=== PATIENT | female | born 1965 | race Caucasian/White ===

== ENCOUNTER → 2018-03-26 17:11 | Outpatient (REF) | payer OTHER, SELFPAY ==
[2018-03-26 21:10] LABS: Bilirubin Negative (Negative); Blood Moderate (Negative); Clarity Clear; Glucose Negative (Negative); Ketones Negative (Negative); Leukocyte Esterase Negative (Negative); Nitrite Negative (Negative); Specific Gravity 1.015 (1.005-1.025); Urobilinogen 0.2 EU/dL (Up TO 0.2)
[2018-03-26 21:30] LABS: Bacteria Few HPF (Negative); Crystals Negative HPF (Negative); Epithelial Cells Few HPF (Negative); RBC 20-50 (0-2); WBC 0-2 HPF (0-5)
[2018-03-26 21:31] LABS: C & S Indicated? No; Casts Negative LPF (Negative); Mucus Trace (Negative)
[2018-03-26 21:35] LABS: COMMENT (LAB VIEW ONLY) 147.56 mg/dL; Microalb ug/mg Crea 21.6 ug/mg Cr
== END ==
LOC: NCHCN 17:11
PROVIDERS: PCP Nurse Practitioner Family; Visit Provider Surgery
DX: N28.9 Disorder of kidney and ureter, unspecified (principal); R35.0 Frequency of micturition
CPT/HCPCS: 81003; 81015; 82043; 82570

== ENCOUNTER → 2018-04-11 03:00 | Outpatient (CLI) | payer OTHER, SELFPAY ==
--- NOTE | 2018-04-11 08:25 | DI.REPORT_ITS ---
SYMPTOM/DIAGNOSIS: MICROALBUMINURIA R80.9 RENAL ULTRASOUND: The kidneys are normal in size and echogenicity and show normal parenchymal thickness. No hydronephrosis or nephrolithiasis is seen. The pre-void bladder volume measures 278 cc. The post-void bladder volume is 45 cc. The right ureteral jet was visualized. The left ureteral jet was not visualized. No bladder calcification or focal bladder mass is seen. IMPRESSION: Renal ultrasound is within normal limits.
== END ==
PROVIDERS: PCP Nurse Practitioner Family; Visit Provider Nurse Practitioner Family
DX: R80.9 Proteinuria, unspecified (principal)
CPT/HCPCS: 76770

== ENCOUNTER 2018-11-06 00:54 | Outpatient (CLI) | payer OTHER, SELFPAY ==
--- NOTE | 2018-11-06 10:49 | DI.MAMMO_ITS ---
SYMPTOM/DIAGNOSIS: SCREEN, Z12.31 MAMMOGRAM: Mammograms were interpreted according to the usual protocol including computer analysis with CAD system, tomosynthesis and C view imaging. Comparison with prior examinations. Breast density B. No suspicious masses or microcalcifications are seen. There is no definite evidence of malignancy. IMPRESSION: Category 1-B. Negative mammogram. Routine screening is recommended. [facility] ASSESSMENT OF FINDINGS: Negative. Category 1. Patient will receive a letter notifying them of these results. BI-RADS category B. There are scattered areas of fibroglandular density.
== END 2018-11-06 01:14 ==
PROVIDERS: PCP Nurse Practitioner Family; Visit Provider Nurse Practitioner Family
DX: Z12.31 Encounter for screening mammogram for malignant neoplasm of breast (principal)
CPT/HCPCS: 77063; 77067

== ENCOUNTER 2019-04-24 14:53 | Outpatient (REF) | payer OTHER, SELFPAY ==
[2019-04-24 20:49] LABS: Abs Immature Grans 0.02 k/cumm (0.0-0.09); Absolute Basophil Count 0.02 k/cumm (0.0-0.2); Absolute Eosinophil Count 0.14 k/cumm (0.0-0.7); Absolute Monocyte Count 0.59 k/cumm (0.11-0.7); Absolute Neutrophil Count 4.84 k/cumm (1.2-6.7); Basophils % 0.3; HCT 45.1 % (36.0-46.0); HGB 14.3 g/dL (12.0-15.5); Immature Grans % 0.3; Mean Corp. HGB Concentration 31.7 g/dL (32.0-36.0); Mean Corpuscular Hemoglobin 31.4 pg (27.0-33.0); Mean Corpuscular Volume 99.1 fL (80-95); Mean Platelet Volume 11.8 fL (8.0-11.0); Monocytes % 8.4; Platelet Count 297 x1000/uL (130-400); RBC 4.55 m/cumm (4.00-5.20); RBC Distribution Width 13.4 % (11.7-14.6); White Blood Cell Count 7.01 k/cumm (4.4-10.8)
[2019-04-24 21:09] LABS: Anion Gap 10.2 mmol/L (3-11); BUN 11 mg/dL (7-18); CO2 27.8 mmol/L (21.0-32.0); CREATININE 1.16 mg/dL (0.55-1.02); Chloride 107 mmol/L (98-107); Estimated GFR 49.06 (mL/min/1.73m2); Glucose 72 mg/dL (70-100); Potassium 4.6 mmol/L (3.5-5.1); Sodium 145 mmol/L (136-145)
== END 2019-04-24 15:13 ==
LOC: NCHCN 14:53
PROVIDERS: PCP Nurse Practitioner Family; Visit Provider Nurse Practitioner Family
DX: S20.96XD Insect bite (nonvenomous) of unspecified parts of thorax, subsequent encounter (principal); R11.0 Nausea; M79.673 Pain in unspecified foot; R07.89 Other chest pain; R80.9 Proteinuria, unspecified; N18.3 Chronic kidney disease, stage 3 (moderate); D75.89 Other specified diseases of blood and blood-forming organs; Z00.00 Encounter for general adult medical examination without abnormal findings
CPT/HCPCS: 80048; 85025

== ENCOUNTER 2020-11-01 12:51 | Outpatient (REF) | payer OTHER, SELFPAY ==
--- NOTE | 2020-11-01 09:45 | PAPFT_PTH ---
PATIENT: Em Navarro LOC: [facility]#:[id number] AGE/SX: 55/F ROOM: RE11/01/[address]: Jewels Davis : 1965 BED: DIS: 11/01/2020 SPEC #: [id number] RECD: 11/01/20 17:20 STATUS: ANISHA CHAHAL #: [id number] APRIL: 11/01/20 09:[address]: Jewels Davis DEPT: [facility] Cytology RECD BY: Thea Dumont Tissues: 1 - CX/ENDOCX FOR PAP SMEARS Procedures: PAP THIN PREP/UVM Screening HPV DNA PROBE Comments: [id number]
[2020-11-01 13:25] LABS: Abs Immature Grans 0.02 10^3/uL (0.0-0.06); Absolute Basophil Count 0.04 10^3/uL (0.0-0.2); Absolute Lymphocyte Count 1.41 10^3/uL (1.2-3.4); Absolute Monocyte Count 0.57 10^3/uL (0.1-0.8); Absolute Neutrophil Count 6.22 10^3/uL (1.2-6.7); Basophils % 0.5; Eosinophils % 3.5; HCT 40.2 % (36.0-46.0); HGB 13.1 g/dL (11.2-15.7); Immature Grans % 0.2; Lymphocytes % 16.5; MCH 32.8 pg (27.0-33.0); MCHC 32.6 % (32.0-36.0); MCV 100.5 fL (80-95); MPV 11.3 fL (8.0-11.0); Monocytes % 6.7; Neutrophils % 72.6; Nucleated RBC 0 %; Platelet Count 279 10^3/uL (130-400); RDW 12.7 % (11.7-14.6); RDW-SD 47.4 fL; WBC 8.56 10^3/uL (4.4-10.8)
[2020-11-01 13:36] LABS: Iron 70 ug/dL (50-170); Total Iron Binding Capacity 326 ug/dL (250-450); Transferrin Sat 21 % (15-50)
[2020-11-01 13:44] LABS: ALT 17 U/L (14-59); AST 12 U/L (15-37); Albumin 3.5 g/dL (3.4-5.0); Alkaline Phosphatase 86 U/L (46-116); Anion Gap 8.9 mmol/L (3-11); BUN 14 mg/dL (7-18); Bilirubin, Total 0.2 mg/dL (0.2-1.0); CO2 29.1 mmol/L (21.0-32.0); CREATININE 1.2 mg/dL (0.55-1.02); Calculated LDL 105 mg/dL (<100); Chloride 103 mmol/L (98-107); Cholesterol 163 mg/dL (<200); Estimated GFR 46.99 (mL/min/1.73m2); Glucose 85 mg/dL (74-106); HDL Cholesterol 49 mg/dL (40-60); Sodium 141 mmol/L (136-145); TSH (W/Ref FT4) 0.96 uIU/mL (0.36-3.74); Total Protein 6.5 g/dL (6.4-8.2); Triglyceride 48 mg/dL (<150)
[2020-11-01 14:01] LABS: Calcium 8.9 mg/dL (8.5-10.1)
[2020-11-02 11:37] LABS: Hepatitis C Ab w Rflx HCV PCR Negative (Negative)
[2020-11-02 11:55] LABS: HIV-1/2 Ag & Ab Screen Negative (Negative)
== END 2020-11-01 12:52 | disposition home or self-care (01) ==
LOC: NCHCN 12:51
PROVIDERS: PCP Nurse Practitioner Family; Visit Provider Nurse Practitioner Family
DX: Z00.00 Encounter for general adult medical examination without abnormal findings (principal); R51.9 Headache, unspecified; N18.30 Chronic kidney disease, stage 3 unspecified; M25.59 Pain in other specified joint; J45.20 Mild intermittent asthma, uncomplicated; Z11.4 Encounter for screening for human immunodeficiency virus [HIV]; D75.89 Other specified diseases of blood and blood-forming organs; Z11.59 Encounter for screening for other viral diseases; Z13.220 Encounter for screening for lipoid disorders; R49.0 Dysphonia; Z12.4 Encounter for screening for malignant neoplasm of cervix; Z01.419 Encounter for gynecological examination (general) (routine) without abnormal findings; Z11.51 Encounter for screening for human papillomavirus (HPV); R79.89 Other specified abnormal findings of blood chemistry
CPT/HCPCS: 80053; 80061; 86803; 87389; 88142; 83540; 83550; 84443; 85025; 87624

== ENCOUNTER 2020-11-03 01:21 | Outpatient (CLI) | payer OTHER, SELFPAY ==
--- NOTE | 2020-11-03 | DI.MAMMO_ITS ---
EXAM: MG MAMMO SCREENING CLINICAL HISTORY: SCREENING, Z12.31 TECHNIQUE: Bilateral full field digital CC and MLO mammographic images were obtained with 3D tomosyn thesis and utilizing computer aided detection (CAD). COMPARISON: Available for comparison. FINDINGS: Masses/Architectural Distortion: None seen. There is a stable lymph nodes seen in the outer left crist[address] st. Microcalcifications: No suspicious pleomorphic-type are seen. Skin Thickening/Nipple Retraction: None. IMPRESSION: 1. No significant interval change with no specific features of malignancy noted. 2. Unless there is more urgent need, screening mammography is recommended, as per [place] guidelines. BI-RADS Category 1 - Negative Breast Density - Category B - Scattered areas of fibroglandular density Breast density category C or D implies that the patient has dense breast tissue. Dense breast tissue is very common and is not abnormal but dense breast tissue can make it harder to find cancer on a ma mmogram. Also, dense breast tissue may increase their breast cancer risk. This information about the result of the mammogram report was provided to the patient to raise their awareness. Use this report when you speak with the patient about their risks for breast cancer, which includes their family hist ory. At that time, you may recommend for more screening tests (Ultrasound or MRI) as they might be us eful based on their risk. A negative radiographic report should not delay biopsy if a dominant or clinically suspicious mass is present. Up to ten percent of cancers are not identified on mammography. A negative report may reinforce clinical impression. Adenosis and dense breasts may obscure an underlying neoplasm. False positive reports average 6 to 10%. Patient will receive a letter notifying them of these results.
== END 2020-11-03 01:41 ==
PROVIDERS: PCP Nurse Practitioner Family; Visit Provider Nurse Practitioner Family
DX: Z12.31 Encounter for screening mammogram for malignant neoplasm of breast (principal)
CPT/HCPCS: 77063; 77067

== ENCOUNTER 2021-06-27 16:23 | Outpatient (REF) | payer OTHER, SELFPAY ==
[2021-06-27 21:12] LABS: Anion Gap 6.9 mmol/L (3-11); BUN 9 mg/dL (7-18); CO2 30.1 mmol/L (21.0-32.0); CREATININE 1.2 mg/dL (0.55-1.02); Calcium 9.3 mg/dL (8.5-10.1); Chloride 108 mmol/L (98-107); Estimated GFR 46.82 (mL/min/1.73m2); Glucose 110 mg/dL (74-106); Potassium 4.4 mmol/L (3.5-5.1); Sodium 145 mmol/L (136-145)
== END 2021-06-27 16:24 | disposition home or self-care (01) ==
LOC: NCHCN 16:23
PROVIDERS: PCP Nurse Practitioner Family; Visit Provider Nurse Practitioner Family
DX: K30 Functional dyspepsia (principal)
CPT/HCPCS: 80048

== ENCOUNTER 2021-11-28 15:33 | Outpatient (REF) | payer OTHER, SELFPAY ==
[2021-11-28 16:20] LABS: Abs Immature Grans 0.02 10^3/uL (0.0-0.06); Absolute Basophil Count 0.03 10^3/uL (0.0-0.2); Absolute Lymphocyte Count 1.23 10^3/uL (1.2-3.4); Absolute Monocyte Count 0.52 10^3/uL (0.1-0.8); Absolute Neutrophil Count 5.99 10^3/uL (1.2-6.7); Basophils % 0.4; Eosinophils % 2.5; HCT 43.7 % (36.0-46.0); HGB 14.1 g/dL (11.2-15.7); Immature Grans % 0.3; Lymphocytes % 15.4; MCH 32.6 pg (27.0-33.0); MCHC 32.3 % (32.0-36.0); MCV 101.2 fL (80-95); MPV 11.5 fL (8.0-11.0); Monocytes % 6.5; Neutrophils % 74.9; Nucleated RBC 0 %; Platelet Count 284 10^3/uL (130-400); RBC 4.32 10^6/uL (3.93-5.22); RDW 12.9 % (11.7-14.6); RDW-SD 48.5 fL; WBC 7.99 10^3/uL (4.4-10.8)
[2021-11-28 16:50] LABS: ESR 10 mm/hr (0-30)
[2021-11-28 17:55] LABS: Iron 77 ug/dL (50-170); Total Iron Binding Capacity 345 ug/dL (250-450); Transferrin Sat 22 % (15-50)
[2021-11-28 18:19] LABS: ALT 17 U/L (14-59); AST 10 U/L (15-37); Albumin 3.9 g/dL (3.4-5.0); Alkaline Phosphatase 96 U/L (46-116); Anion Gap 8.5 mmol/L (3-11); BUN 19 mg/dL (7-18); Bilirubin, Total 0.3 mg/dL (0.2-1.0); CO2 28.5 mmol/L (21.0-32.0); CREATININE 1.1 mg/dL (0.55-1.02); Calcium 9.3 mg/dL (8.5-10.1); Chloride 105 mmol/L (98-107); Estimated GFR 51.76 (mL/min/1.73m2); Ferritin 44 ng/mL (8-252); Glucose 78 mg/dL (74-106); Sodium 142 mmol/L (136-145); Total Protein 7.1 g/dL (6.4-8.2); Vitamin B12 1547 pg/mL (193-986)
[2021-11-28 18:42] LABS: C-Reactive Protein 0.18 mg/dL (0.0-0.3); TSH (W/Ref FT4) 1.14 uIU/mL (0.36-3.74)
[2021-11-29 11:30] LABS: Lyme Ab w Rflx to Lyme Confirm Positive (Negative)
[2021-11-29 15:08] LABS: ANA Interpretation Positive (Negative); ANA Titer Pattern 1:160 Speckled
[2021-11-30 07:52] LABS: Lyme IgG Ab Positive (Negative); Lyme IgM Ab Negative (Negative)
[2021-11-30 18:21] LABS: Anaplasma phagocytophilum Negative (Negative); B. miyamotoi PCR Negative (Negative); Babesia divergens/MO-1 Negative (Negative); Babesia duncani Negative (Negative); Babesia microti Negative (Negative); Ehrlichia chaffeensis Negative (Negative); Ehrlichia ewingii/canis Negative (Negative); Ehrlichia muris eauclairensis Negative (Negative)
== END 2021-11-28 15:34 | disposition home or self-care (01) ==
LOC: NCHCN 15:33
PROVIDERS: PCP Nurse Practitioner Family; Visit Provider Nurse Practitioner Family
DX: Z00.00 Encounter for general adult medical examination without abnormal findings (principal); J32.9 Chronic sinusitis, unspecified; N18.30 Chronic kidney disease, stage 3 unspecified; R49.0 Dysphonia; M25.50 Pain in unspecified joint
CPT/HCPCS: 80053; 85652; 86617; 87798; 82607; 82728; 83540; 83550; 83735; 84443; 85025; 86038; 86140; 86618

== ENCOUNTER 2022-01-25 16:04 | Outpatient (REF) | payer OTHER, SELFPAY ==
[2022-01-25 10:57] LABS: Bilirubin Negative (Negative); Blood Moderate (Negative); Clarity Clear (Clear); Glucose Negative (Negative); Ketones Negative (Negative); Leukocyte Esterase Negative (Negative); Nitrite Negative (Negative); Urobilinogen 0.2 EU/dL (Up TO 0.2); pH 5.5 (5-8)
[2022-01-25 11:13] LABS: Bacteria Negative HPF (Negative); C & S Indicated? No; Casts Negative LPF (Negative); Crystals Negative HPF (Negative); Epithelial Cells Few HPF (Negative); Mucus Negative (Negative); WBC Negative HPF (0-5)
== END 2022-01-25 16:05 | disposition home or self-care (01) ==
LOC: LBN 16:04
PROVIDERS: PCP Nurse Practitioner Family; Visit Provider Nurse Practitioner Gerontology
DX: R31.9 Hematuria, unspecified (principal)
CPT/HCPCS: 81003; 81015

== ENCOUNTER 2022-06-22 14:52 | Outpatient (REF) | payer OTHER, SELFPAY ==
[2022-06-22 16:55] LABS: Anion Gap 4.5 mmol/L (3-11); BUN 16 mg/dL (7-18); CO2 30.5 mmol/L (21.0-32.0); CREATININE 1.3 mg/dL (0.55-1.02); Calcium 9.7 mg/dL (8.5-10.1); Chloride 107 mmol/L (98-107); Estimated GFR 48.56 (mL/min/1.73m2); Glucose 102 mg/dL (74-106); Sodium 142 mmol/L (136-145)
== END 2022-06-22 14:53 | disposition home or self-care (01) ==
LOC: NCHCN 14:52
PROVIDERS: PCP Nurse Practitioner Family; Visit Provider Nurse Practitioner Family
DX: N18.30 Chronic kidney disease, stage 3 unspecified (principal)
CPT/HCPCS: 80048

== ENCOUNTER → 2022-06-28 01:45 | Outpatient (CLI) | payer OTHER, SELFPAY ==
--- NOTE | 2022-06-28 07:45 | DI.CT_ITS ---
Exam(s) CT ABDOMEN PELVIS WO/W EXAM: CT ABDOMEN PELVIS WO/W CLINICAL HISTORY: hematuria,r31.9 TECHNIQUE: CT examination of the abdomen pelvis was performed utilizing CT urogram protocol with non contrast CT followed by venous phase 7 minutes delayed phase imaging with intravenous infusion of 100 cc of Omnipaque 350. COMPARISON: No exams were available for comparison FINDINGS: Noncontrast CT shows no evidence of urinary tract calcification. Images obtained through the lung bases are unremarkable. The liver is unremarkable in appearance except for an apparent small posterior right lower lobe hepat ic cyst and small hepatic hemangiomas showing typical enhancement pattern on this multi phase exam. The spleen is unremarkable in appearance with an incidental apparent small cyst.. The pancreas is unremarkable in appearance. Gallbladder and bile ducts appear normal. Abdominal aorta and major visceral branches appear intact. No evidence of abdominal wall hernia. No evidence of abdominal or pelvic adenopathy. No focal bowel pathology. The kidneys are normal in size and shape. There is normal symmetrical renal cortical enhancement. T here is no evidence of a renal mass, hydronephrosis, or nephrolithiasis. There is normal appearance of the urinary bladder. IMPRESSION: Negative CT urogram. RADIATION DOSE DELIVERED: 1,904.75mGy.cm Total DLP 1,904.75mGy.cm Total DLP !Error CTDIvol DATA REPOSITORY: All CT scans at this facility are submitted to the National Radiology Data Registry (NRDR) Dose Index Registry (DIR) with the [employer] (ACR). RADIATION OPTIMIZATION: All CT scans at this facility use at least one of these dose optimization te chniques: automated exposure control; mA and/or kV adjustment per patient size (includes targeted exa ms where dose is matched to clinical indication); or iterative reconstruction.
[2022-06-28] MEDS: Omnipaque 350 MG/ML 100 ML BTL IJ (14:21)
== END ==
PROVIDERS: PCP Nurse Practitioner Family; Visit Provider Nurse Practitioner Gerontology
DX: R31.9 Hematuria, unspecified (principal)
CPT/HCPCS: 74178; J3490

== ENCOUNTER 2022-09-17 01:21 | Outpatient (CLI) | payer OTHER, SELFPAY ==
--- NOTE | 2022-09-17 | DI.MAMMO_ITS ---
Exam(s) MAMMO SCREENING EXAM: MAMMO SCREENING CLINICAL HISTORY: SCREENING MAMMO Z12.31 TECHNIQUE: Mammograms were interpreted according to the usual protocol including computer analysis w Wear CAD system, tomosynthesis and C-view imaging. COMPARISON: 2014 through 2020 FINDINGS: The breasts are composed of scattered fibroglandular densities, Breast Density category B. No suspicious masses or suspicious microcalcifications are seen. No skin thickening or abnormal axillary lymph nodes are seen. There has been no significant change from prior exams. IMPRESSION: BI-RADS Category 1, Negative mammogram Yearly screening mammography is recommended. Breast Density - Category B, scattered fibroglandular densities. A negative radiographic report should not delay biopsy if a dominant or clinically suspicious mass is present. Up to ten percent of cancers are not identified on mammography. A negative report may reinforce clinical impression. Adenosis and dense breasts may obscure an underlying neoplasm. False positive reports average 6 to 10%. Patient will receive a letter notifying them of these results.
== END 2022-09-17 01:41 ==
LOC: DI 01:21
PROVIDERS: PCP Nurse Practitioner Family; Visit Provider Nurse Practitioner Family
DX: Z12.31 Encounter for screening mammogram for malignant neoplasm of breast (principal); R92.8 Other abnormal and inconclusive findings on diagnostic imaging of breast
CPT/HCPCS: 77063; 77067

== ENCOUNTER 2022-12-07 14:45 | Outpatient (REF) | payer OTHER, SELFPAY ==
[2022-12-07 15:24] LABS: Abs Immature Grans 0.01 10^3/uL (0.0-0.06); Absolute Basophil Count 0.04 10^3/uL (0.0-0.2); Absolute Eosinophil Count 0.22 10^3/uL (0.0-0.7); Absolute Lymphocyte Count 1.81 10^3/uL (1.2-3.4); Absolute Monocyte Count 0.62 10^3/uL (0.1-0.8); Absolute Neutrophil Count 4.23 10^3/uL (1.2-6.7); Basophils % 0.6; Eosinophils % 3.2; HCT 40.1 % (36.0-46.0); HGB 13.2 g/dL (11.2-15.7); Immature Grans % 0.1; Lymphocytes % 26.1; MCH 32.5 pg (27.0-33.0); MCHC 32.9 % (32.0-36.0); MCV 99 fL (80-95); MPV 11.3 fL (8.0-11.0); Monocytes % 8.9; Neutrophils % 61.1; Platelet Count 237 10^3/uL (130-400); RBC 4.06 10^6/uL (3.93-5.22); RDW-SD 46.5 fL; WBC 6.93 10^3/uL (4.4-10.8)
[2022-12-07 16:03] LABS: Anion Gap 5.7 mmol/L (3-11); BUN 17 mg/dL (7-18); CO2 29.3 mmol/L (21.0-32.0); CREATININE 1.1 mg/dL (0.55-1.02); Calcium 9.2 mg/dL (8.5-10.1); Chloride 107 mmol/L (98-107); Estimated GFR 59.34 (mL/min/1.73m2); Folate 9.1 ng/mL (8.6-20.0); Glucose 105 mg/dL (74-106); Potassium 4.3 mmol/L (3.5-5.1); Sodium 142 mmol/L (136-145); Vitamin B12 787 pg/mL (193-986)
== END 2022-12-07 14:46 | disposition home or self-care (01) ==
LOC: NCHCN 14:45
PROVIDERS: PCP Nurse Practitioner Family; Visit Provider Nurse Practitioner Family
DX: N18.30 Chronic kidney disease, stage 3 unspecified (principal); D75.89 Other specified diseases of blood and blood-forming organs; D12.6 Benign neoplasm of colon, unspecified; R51.9 Headache, unspecified; R53.83 Other fatigue; F41.8 Other specified anxiety disorders; K58.9 Irritable bowel syndrome, unspecified; R07.81 Pleurodynia
CPT/HCPCS: 80048; 82607; 82746; 85025

== ENCOUNTER 2023-05-13 15:47 | Outpatient (REF) | payer OTHER, SELFPAY ==
[2023-05-13 15:46] LABS: Anion Gap 11.7 mmol/L (3-11); BUN 14 mg/dL (7-18); CO2 25.3 mmol/L (21.0-32.0); CREATININE 1.2 mg/dL (0.55-1.02); Calcium 9.6 mg/dL (8.5-10.1); Chloride 104 mmol/L (98-107); Estimated GFR 53.13 (mL/min/1.73m2); Glucose 103 mg/dL (74-106); Potassium 4.6 mmol/L (3.5-5.1); Sodium 141 mmol/L (136-145)
== END 2023-05-13 15:48 | disposition home or self-care (01) ==
LOC: NCHCN 15:47
PROVIDERS: PCP Nurse Practitioner Family; Visit Provider Nurse Practitioner Family
DX: R53.83 Other fatigue (principal); N18.30 Chronic kidney disease, stage 3 unspecified; D75.89 Other specified diseases of blood and blood-forming organs; F41.8 Other specified anxiety disorders
CPT/HCPCS: 80048

== ENCOUNTER 2023-06-27 08:37 | Day surgery (SDC) | payer OTHER, SELFPAY ==
--- NOTE | 2023-06-26 19:45 | W.COLOREPORT ---
Date of service: 06/27/23 Time of Service: 11:15 Colonoscopy Report Date of procedure: 06/27/23 Pre-op diagnosis general: Screening colonoscopy Post-op diagnosis procedure note: other (Colorectal polyps) Procedure: Colonoscopy with polypectomy Surgeon: Les Mann Anesthesia Type: General:No Airway Estimated blood loss (mL): 10 Pathology: other (Rectal polyps x2, 0.5 cm colon polyp at 40 cm) Complications: None Disposition: PACU Indications: Amanda is a 58-year-old woman with a history of adenomatous polyps here is here for neck screening colonoscopy Prep: Miralax/Dulcolax Procedure Start Time: 10:46 Procedure End Time: 11:09 Retraction Time: 16 Findings: Rectal polyps x2, 0.5 cm colon polyp at 40 cm Procedure Description: After the induction of monitored anesthetic care, and with the patient in left lateral decubitus position, I began by performing an external anorectal exam.? Perineum and skin were normal, as was the anal verge.? There was no evidence of external hemorrhoids.? Next, I performed a digital rectal exam.? I did not appreciate any abnormal findings.? Next, I advanced a colonoscope into the rectal vault.? I performed retroflexion.? This was normal.? Using insufflation, I then advanced the colonoscope beyond the rectal folds and into the sigmoid colon before advancing towards the cecum.? The scope was noted to be in the cecum by identification of the ileocecal valve and appendiceal orifice.? I then began withdrawing the colonoscope using repeated irrigation as necessary for full evaluation of the colonic mucosa. Around 40 cm from the anal verge I identified a 0.5 cm polyp. ?It appeared sessile in character. ?I was able to remove this with a cold forceps. ?I examined the site, and there was minimal bleeding. ?Once this was completed, I continued to withdraw the scope and examine the remainder of the colonic mucosa. Once the scope was withdrawn to the level of the rectum, great care was taken to examine portions of the rectal folds.? In the upper portion of the rectum were 2 more 0.25 cm polyps. Both of these were sessile. I removed both of these with cold forceps. Finally, the scope was withdrawn and the patient was brought to the same-day surgery recovery unit as the anesthetic wore off. ?The findings and instructions were shared with the patient prior to discharge. [place] Bowel Prep [place] Bowel Prep Right Colon: 3 Left Colon: 3 Transverse Colon: 3 Total Score: 9
[2023-06-27] VITALS (10 sets, daily range): BP systolic 74–107; BP diastolic 40–72; PULSE 49–71; RESP 12–24; TEMP 36.2–36.9; O2SAT 93–100; BMI 22.2
--- NOTE | 2023-06-27 06:09 | ANES.PREOP_ITS ---
General Info Date of Service Date Performed: 06/27/23 Height: 5 ft 2 in Weight: 55.111 kg Body Mass Index (BMI): 22.2 Surgical Procedure: Operation Date: 06/27/23 10:40 Proposed Procedure Side Surgeon p Cystoscopy, possible TURBT Gene Rocha MD s Colonoscopy Les Mann MD Meds Allergies and Home Medications Allergies Allergy/AdvReac Type Severity Reaction Status Date / Time aspirin Allergy Severe Unverified 06/27/23 09:06 chocolate flavor Allergy Severe Nasal Unverified 06/27/23 09:06 bleeding diphenhydramine HCl Allergy Intermediate Unverified 06/27/23 09:06 [From Benadryl] codeine Allergy Mild Unverified 06/27/23 09:06 corn Allergy Unverified 06/27/23 09:06 doxycycline Allergy Verified 06/27/23 09:06 Tetanus Vaccines and Toxoid Allergy Verified 06/27/23 09:06 amitriptyline AdvReac Mild Nausea Unverified 06/27/23 09:06 amoxicillin AdvReac Mild Nausea Unverified 06/27/23 09:06 dairy AdvReac Severe Uncoded 06/27/23 09:06 Home Medication Medication Instructions Recorded Lactobacillus acidophilus 100 1 ea PO DAILY 09/27/17 million cell capsule acetaminophen 325 mg tablet 325 mg PO PRN 09/27/17 (Tylenol) calcium carb,cit ER 600 mg-vit D3 1 ea PO DAILY 09/27/17 12.5 mcg (500 unit) tablet,ext.rel fluticasone propionate 50 50 mcg inhalation DAILY PRN 09/27/17 mcg/actuation blister powder for inhalation (Flovent Diskus) methocarbamol 500 mg tablet 500 mg PO PRN 09/27/17 dicyclomine 20 mg tablet 20 mg PO BID 10/10/17 albuterol sulfate 90 mcg/actuation 2 puff inhalation Q4H PRN 01/11/22 aerosol inhaler (Proventil HFA) ascorbic acid (vitamin C) 500 mg 1,500 mg PO QWEEK 01/25/22 capsule acetylcysteine 600 mg capsule (NAC) 600 mg PO BID 01/24/23 melatonin 5 mg disintegrating 10 mg PO PRN 01/24/23 tablet polyethylene glycol 3350 17 17 g PO ONCE #238 grams 01/24/23 gram/dose oral powder bupropion HCl 100 mg tablet,12 hr 100 mg PO DAILY 05/14/23 sustained-release (Wellbutrin SR) cyanocobalamin (vitamin B-12) 3,000 mcg PO .COMPLEX 06/19/23 1,000 mcg capsule loratadine 10 mg tablet 10 mg PO DAILY PRN 06/19/23 trazodone 50 mg tablet 25 mg PO QHS 06/19/23 celecoxib 100 mg capsule (Celebrex) 100 mg PO DAILY 06/27/23 magnesium 250 mg tablet 250 mg PO DAILY 06/27/23 Current Visit Medications: Current Medications Generic Name Dose Route Start Last Admin Trade Name Freq PRN Reason Stop Dose Admin Ringer's Solution 1,000 mls @ 80 mls/hr 06/27/23 06:00 IV 07/26/23 23:59 INFUSION [facility] IV Miscellaneous Supplies 1 each 06/27/23 06:00 Iv Access IV 07/26/23 23:59 DIRECTED ERLIN Sodium Chloride 0 ml 06/27/23 06:00 Normal Saline Flush 10 Ml Syr IV 07/26/23 23:59 PRN PRN Sodium Chloride 0 ml 06/27/23 06:00 Normal Saline 10 Ml Vial IJ 07/26/23 23:59 DIRECTED PRN Sterile Water 0 ml 06/27/23 06:00 Water,Injection,Sterile 10 Ml Vial IJ 07/26/23 23:59 DIRECTED PRN Trimethoprim/Sulfamethoxazole 1 tab 06/27/23 06:00 Sulfameth/Trimeth Ds Tab PO 06/27/23 16:00 PREOP ERLIN PFSH Active Problems Active Problems: Problem Status Onset Code Fatigue R53.83 Screening for colon cancer Z12.11 Headache R51.9 Lyme disease A69.20 Hematuria R31.9 Skin lesions L98.9 Genital herpes A60.00 CKD (chronic kidney disease), stage III N18.30 Macrocytosis D75.89 Onychomycosis B35.1 Medical History Medical History Ulcerative colitis Adenomatous colon polyp Asthma IBS (irritable bowel syndrome) Chronic back pain Dyspepsia Depression Arthralgia Surgical History Surgical History Colonoscopy - MAC (10/14/17) Tobacco Smoking/Tobacco Use Status: Former Tobacco Use Alcohol Alcohol Intake: current Alcohol intake frequency: holidays/special occasions only Substance Use Substance use: Daily Substance use type: marijuana Details: Smokes and edibles for control of her back pain Vital Signs and Lab Results Vital Signs Most Recent Vital Signs in EMR: Temp Pulse Resp BP Pulse Ox 36.9 C 70 16 107/72 98 06/27/23 09:07 06/27/23 09:07 06/27/23 09:07 06/27/23 09:07 06/27/23 09:07 Lab Results Blood Type / Crossmatch: 2 No Data to Display Complete Blood Count: 2 No Data to Display Complete Metabolic Panel: 2 No Data to Display Liver Function Panel: 2 No Data to Display Coagulation Panel: 2 No Data to Display Cardiac Panel: 2 No Data to Display Arterial Blood Gas: 2 No Data to Display Venous Blood Gas: 2 No Data to Display Pancreas Panel: 2 No Data to Display Thyroid Panel: 2 No Data to Display Infectious Disease: 2 No Data to Display Blood Cultures: 2 No Data to Display Toxicology Panel: 2 No Data to Display Anesthesia Assessment and Plan Anesthesia History Personal History: PONV and Delayed Emergence Family History: No Family History of Anesthesia Complications Exercise Tolerance Exercise Tolerance: Metabolic Equivalents>4 Cardiac & Pulmonary Exam Cardiac Exam: Normal S1/S2 Heart Sounds Pulmonary Exam: Clear Bilateral Breath Sounds Implantable Cardiac Device Does patient have a Pacemaker or an ICD?: No Airway Exam Known Difficult Airway: No Mallampati Class: 2 Mouth Opening: Normal (> 3cm) Thyromental Distance: Greater than 3 cm Neck Range of Motion: Full ROM and Limited ROM Neck Circumference: Normal Teeth Condition: Normal Dentition Tooth Numberin 1. missing ASA Classification ASA Score: ASA 2 Emergency Case?: No NPO Status NPO Status: NPO Clears >2 hours, Solids >8 hours Anesthesia Plan Resuscitation Status: Full Code Anesthesia Technique: General Anesthesia Airway Planned: Natural Airway Monitors Used: Standard Monitors Preoperative Comments:: 58 yo female for cysto, colo. Sig PMHx: asthma (albuterol, fluticasone, well controlled), GERD (occ), Lyme, CKDIII, depression (bupropion), back pain (daily cannabis, methocarbamol) former smoker, occ EtOH, daily cannabis. Previous Anes: - colo, prop, natural airway, no issues.
--- NOTE | 2023-06-27 08:55 | W.PM.HP.N ---
Date of service: 06/27/23 Time of Service: 08:55 Assessment and Plan Assessment and plan (1) Hematuria: Status: Acute Assessment and plan: She has already had a normal CT urogram. She presents for cystoscopy to complete her hematuria workup Qualifiers: Hematuria type: asymptomatic microscopic Qualified Code(s): R31.21 - Asymptomatic microscopic hematuria History of Present Illness History of Present Illness Chief Complaint: Microscopic hematuria Narrative: This is a 58-year-old woman who has a finding of microscopic hematuria. She has never seen gross hematuria. She has been evaluated with a CT urogram which shows no significant uropathology. She presents now for cystoscopy. She did have a hematuria work-up in the past but it has been over 5 years since her last studies. 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 Genital herpes (Acute) CKD (chronic kidney disease), stage III (Acute) Macrocytosis (Acute) Onychomycosis (Acute) Medical History Ulcerative colitis Adenomatous colon polyp Asthma IBS (irritable bowel syndrome) Chronic back pain Dyspepsia Depression Arthralgia Surgical History Colonoscopy - MAC (10/14/17) Social History Smoking/Tobacco Use Status: Former Tobacco Use Quit Date: 08/26/86 Smoking risk assessment performed?: Yes Alcohol Intake: current Alcohol Intake frequency: holidays/special occasions only Drug use: Daily Substance use type: marijuana Details: Smokes and edibles for control of her back pain last marijuana use t-1 2100 Housing: house Current gender identity: female Do you feel safe at home: Yes Do you feel safe in your relationship?: Yes Additional Social history: unable to assess privately-06/27/23 mkb Meds Allergies and Home Medications Allergies Allergy/AdvReac Type Severity Reaction Status Date / Time aspirin Allergy Severe Unverified 06/27/23 09:06 chocolate flavor Allergy Severe Nasal Unverified 06/27/23 09:06 bleeding diphenhydramine HCl Allergy Intermediate Unverified 06/27/23 09:06 [From Benadryl] codeine Allergy Mild Unverified 06/27/23 09:06 corn Allergy Unverified 06/27/23 09:06 doxycycline Allergy Verified 06/27/23 09:06 Tetanus Vaccines and Toxoid Allergy Verified 06/27/23 09:06 amitriptyline AdvReac Mild Nausea Unverified 06/27/23 09:06 amoxicillin AdvReac Mild Nausea Unverified 06/27/23 09:06 dairy AdvReac Severe Uncoded 06/27/23 09:06 Home Medications Medication Instructions Recorded Confirmed Type Lactobacillus acidophilus 100 1 ea PO DAILY 09/27/17 06/27/23 History million cell capsule acetaminophen 325 mg tablet 325 mg PO PRN 09/27/17 06/27/23 History (Tylenol) calcium carb,cit ER 600 mg-vit D3 1 ea PO DAILY 09/27/17 06/27/23 History 12.5 mcg (500 unit) tablet,ext.rel fluticasone propionate 50 50 mcg inhalation DAILY PRN 09/27/17 06/27/23 History mcg/actuation blister powder for inhalation (Flovent Diskus) methocarbamol 500 mg tablet 500 mg PO PRN 09/27/17 06/27/23 History dicyclomine 20 mg tablet 20 mg PO BID 10/10/17 06/27/23 History albuterol sulfate 90 mcg/actuation 2 puff inhalation Q4H PRN 01/11/22 06/27/23 History aerosol inhaler (Proventil HFA) ascorbic acid (vitamin C) 500 mg 1,500 mg PO QWEEK 01/25/22 06/27/23 History capsule acetylcysteine 600 mg capsule (NAC) 600 mg PO BID 01/24/23 06/27/23 History melatonin 5 mg disintegrating 10 mg PO PRN 01/24/23 06/27/23 History tablet polyethylene glycol 3350 17 17 g PO ONCE #238 grams 01/24/23 06/27/23 Rx gram/dose oral powder bupropion HCl 100 mg tablet,12 hr 100 mg PO DAILY 05/14/23 06/27/23 History sustained-release (Wellbutrin SR) cyanocobalamin (vitamin B-12) 3,000 mcg PO .COMPLEX 06/19/23 06/27/23 History 1,000 mcg capsule loratadine 10 mg tablet 10 mg PO DAILY PRN 06/19/23 06/27/23 History trazodone 50 mg tablet 25 mg PO QHS 06/19/23 06/27/23 History celecoxib 100 mg capsule (Celebrex) 100 mg PO DAILY 06/27/23 06/27/23 History magnesium 250 mg tablet 250 mg PO DAILY 06/27/23 06/27/23 History Exam Const General: cooperative Neck Neck: supple Resp Effort & Inspection: normal respiratory effort Auscultation: clear to auscultation bilaterally Cardio Rate: regular rate Rhythm: regular rhythm GI Palpation: soft and no masses Neuro General: patient alert, patient awake and patient oriented x3 Time Spent Time spent with Patient: <40 minutes Time was spent: other
[2023-06-27] MEDS: Sulfameth/Trimeth DS TAB 1 TAB PO (09:32)
[2023-06-27] MEDS: Lactated Ringers 1,000 ML 80 ML IV (09:55)
--- NOTE | 2023-06-27 11:34 | W.PM.DSUDISC ---
Date of service: 06/27/23 Time of Service: 11:34 Discharge Plan Disposition Patient Disposition: Home Condition: Stable Discharge Details Reason For Visit: cystoscopy Attending Provider: Gene Rocha Primary Care Provider: Jewels Davis Home Meds and New Rx's Prescriptions: No Action trazodone 50 mg tablet 25 mg PO QHS polyethylene glycol 3350 17 gram/dose powder 17 g PO ONCE Qty: 238 0RF Rx Instructions: Take per colonoscopy instructions provided by ordering providers office loratadine 10 mg tablet 10 mg PO DAILY PRN methocarbamol 500 MG tablet 500 mg PO PRN Flovent Diskus 50 MCG blister with device 50 mcg Inhalation DAILY PRN acetaminophen [Tylenol] 325 MG tablet 325 mg PO PRN Lactobacillus acidophilus 1 EACH capsule 1 ea PO DAILY calcium carb and citrate-vitD3 1 EACH tablet extended release 1 ea PO DAILY albuterol sulfate [Proventil HFA] 90 mcg/actuation HFA aerosol inhaler 2 puff inhalation Q4H PRN ascorbic acid (vitamin C) 500 mg capsule 1,500 mg PO QWEEK Patient Comments: //sat acetylcysteine [NAC] 600 mg capsule 600 mg PO BID melatonin 5 mg tablet,disintegrating 10 mg PO PRN bupropion HCl [Wellbutrin SR] 100 mg tablet sustained-release 12 hr 100 mg PO DAILY cyanocobalamin (vitamin B-12) 1,000 mcg capsule 3,000 mcg PO .COMPLEX Patient Comments: m// Rx Instructions: 3,000 mcg orally Mon,Sat,Saturday; dicyclomine 20 MG tablet 20 mg PO BID magnesium 250 mg tablet 250 mg PO DAILY celecoxib [Celebrex] 100 mg capsule 100 mg PO DAILY Patient Comments: PRN Discharge Instructions Additional Instructions: yearly followup for urinalysis Activity:: Activity as Tolerated Shower/Bathe:: 24 hours Diet:: As Tolerated DS: Diagnosis Discharge Diagnosis (1) Hematuria: Status: Acute
--- NOTE | 2023-06-27 11:39 | ROE_ITS ---
Date of service: 06/27/23 Time of Service: 11:39 Operative Note Operative Note DATE OF PROCEDURE: 06/27/23 PRE-OP DIAGNOSIS: microscopic hematuria POST-OP DIAGNOSIS: same PROCEDURE: cystoscopy SURGEON: Gene Rocha ANESTHESIA TYPE: General:No Airway Refer to Anesthesia Record ESTIMATED BLOOD LOSS: 10 PATHOLOGY: other (Rectal polyps x2, 0.5 cm colon polyp at 40 cm) COMPLICATIONS: None Patient was transported to: same day Patient's condition: stable Implants: none Indications: This is a 58-year-old woman who has a history of microscopic hematuria. She has never had gross hematuria. It has been over 5 years since her last work-up. She has had a normal-appearing CT urogram. She presents now for cystoscopy. Findings: Normal bladder with no papillary or nodular lesions Procedure Description: The patient was brought to the operating room on 06/27/2023. After successful induction of general anesthesia, she was placed in the left lateral position. Colonoscopy was performed by Dr. Mann. The patient was then repositioned in the dorsal lithotomy position. Her genitalia was prepped and draped. 2% Xylocaine jelly was instilled into the urethra to act as a local anesthetic. A 22 Bulgarian rigid cystoscope was passed through the urethra into the bladder. The bladder was inspected using both the 30 and 70 degree lens. Both ureteral orifices appeared normal in configuration and location. No blood was seen coming from either side. The base of the bladder was slightly descended but no overt prolapse was identified. The remainder of the bladder was smooth-walled with no papillary or nodular lesions. The findings were confirmed with both the 30 and the 70 degree lens. The bladder was emptied and the cystoscope was removed. She was taken back to the day surgery unit in stable condition.
[2023-06-27] MEDS: Lidocaine 2% Jelly 11 ML SYR (11:40)
--- NOTE | 2023-06-27 11:50 | BOWEL_PTH ---
PATIENT: Em Navarro LOC: [facility] U#:[id number] AGE/SX: 58/F ROOM: RE06/27/[address]: Gene Rocha MD : 1965 BED: DIS: 06/27/2023 SPEC #: [id number] RECD: 06/27/23 12:49 STATUS: ANISHA RE #: [id number] APRIL: 06/27/23 11:[address]: Gene Rocha DEPT: Surgical Specimen RECD BY: Thea Dumont ENTERED: 06/27/23 12:49 SP TYPE: Bowel OTHR DR: Jewels Davis Tissues: 1 - BIOPSY BOWEL 2 - BIOPSY BOWEL Procedures: GROSS AND MICRO LEVEL 4 Comments: [id number]
[2023-06-27] MEDS: ePHEDrine 25 MG/5 ML Syringe IVP (12:22)
--- NOTE | 2023-06-28 14:00 | W.ANESPOSTOP ---
Postoperative Evaluation Date, Time and Location Date Performed: 06/27/23 Time Performed: 13:30 Patient Location: Day Surgery Unit Vital Signs Most Recent Imported Vital Signs: Most Recent Vital Signs Temp Pulse Resp BP Pulse Ox 36.2 C L 71 16 102/43 L 98 06/27/23 13:30 06/27/23 13:30 06/27/23 13:30 06/27/23 13:30 06/27/23 13:30 Pain Score Most Recent Pain Score: Most Recent Pain Score Pain Level 0 06/27/23 13:30 Assessment Mental Status: Awake (Alert & Oriented to Patient Baseline) Airway and Respiratory Function: Patent airway with normal (patient baseline) respiratory exam Cardiovascular Function: Hemodynamically Stable Hydration Status: Adequately Hydrated Nausea & Vomiting: No Nausea or Vomiting Pain: Pain is tolerable per patient Peripheral Nerve Block: Patient did not receive a nerve block Postoperative Comments:: Pt brought from [facility] post operatively to the PACU due to hypotension, ephedrine given and ordered for PACU. With time, additional IVF, and ephedrine her MAP improved. Was was discharged home later in the day. It was discussed with her and her SO that she required a significant amount of anesthesia for the cystoscopy portion of her procedure, which was likely to culprit in her hypotension postoperatively. Pt was seen and posted prior to leaving [facility], time not reflective of when that occurred.
== END 2023-06-27 14:35 | disposition home or self-care (01) ==
PROVIDERS: Surgery; PCP Nurse Practitioner Family; Visit Provider Urology
PROC: 0TJB8ZZ Inspection of Bladder, Via Natural or Artificial Opening Endoscopic (ICD-10-PCS; CPT 52000; principal; 2023-06-27 10:30)
PROC: 0DJD8ZZ Inspection of Lower Intestinal Tract, Via Natural or Artificial Opening Endoscopic (ICD-10-PCS; CPT 45378; 2023-06-27 10:30)
DX: R31.21 Asymptomatic microscopic hematuria (principal); Z12.11 Encounter for screening for malignant neoplasm of colon; N18.30 Chronic kidney disease, stage 3 unspecified; K58.9 Irritable bowel syndrome, unspecified; Z86.010 Personal history of colon polyps; K62.1 Rectal polyp; D12.5 Benign neoplasm of sigmoid colon
CPT/HCPCS: 52000; 45380; 88305; J1100; J2250; J2405; J2704

== ENCOUNTER 2024-05-12 18:13 | Emergency (ER) | payer OTHER, SELFPAY ==
[2024-05-12 18:17] VITALS: BP 100/64; PULSE 67; TEMP 36.8; O2SAT 98
--- NOTE | 2024-05-12 18:35 | ED.GENADUL_ITS ---
Discharge Plan Disposition Patient Disposition: Home Condition: Stable Discharge Details Clinical Impression: Avulsion of toenail of right foot Primary Care Provider: Jewels Davis ED Provider: Claire Woods Home Meds and New Rx's Prescriptions: Continued trazodone 50 mg tablet 25 mg PO QHS polyethylene glycol 3350 17 gram/dose powder 17 g PO ONCE Qty: 238 0RF Rx Instructions: Take per colonoscopy instructions provided by ordering providers office loratadine 10 mg tablet 10 mg PO DAILY PRN methocarbamol 500 MG tablet 500 mg PO PRN fluticasone propionate [Flovent Diskus] 50 MCG blister with device 50 mcg Inhalation DAILY PRN acetaminophen [Tylenol] 325 MG tablet 325 mg PO PRN Lactobacillus acidophilus 1 EACH capsule 1 ea PO DAILY calcium carb and citrate-vitD3 1 EACH tablet extended release 1 ea PO DAILY albuterol sulfate [Proventil HFA] 90 mcg/actuation HFA aerosol inhaler 2 puff inhalation Q4H PRN ascorbic acid (vitamin C) 500 mg capsule 1,500 mg PO QWEEK Patient Comments: //sat acetylcysteine [NAC] 600 mg capsule 500 mg PO BID melatonin 5 mg tablet,disintegrating 10 mg PO PRN bupropion HCl [Wellbutrin SR] 100 mg tablet sustained-release 12 hr 100 mg PO DAILY cyanocobalamin (vitamin B-12) 1,000 mcg capsule 3,000 mcg PO .COMPLEX Patient Comments: m/w/fr Rx Instructions: 3,000 mcg orally Sat,Sat,Saturday; dicyclomine 20 MG tablet 20 mg PO BID magnesium 250 mg tablet 250 mg PO DAILY celecoxib [Celebrex] 100 mg capsule 100 mg PO DAILY Patient Comments: PRN Discharge Instructions Instructions: Toe Injury (DC) Additional Instructions: Keep toe gonzález taped daily. Clean with soap and water daily. Avoid stubbing or hitting toe on anything else if possible. Follow up with primary care provider in 3-5 days. Return to ED sooner if any wo rsening or concerns. Please take Tylenol with food every 4-6 hours as needed for pain and swelling. Referrals: Jewels Davis [Primary Care Provider] - Return if symptoms worsen HPI General Mode of arrival: ambulatory . Date/Time Provider Initiated Documentation: 05/12/24 18:26 . Limitations to Documentation: no limitations . Information obtained by: patient, RN notes reviewed and old records reviewed . HPI Narrative: 59-year-old female presents to the ER with a chief complaint right fifth toe pain after stubbing her toe prior to arrival lifting the nail up off the bed. At this time the nail is still in the condyle fold. There is no bleeding, no deformity. She is able to move her digit without difficulty. Is soaking in chlorhexidine and saline upon arrival. She denies any other associated symptoms or complaints. Related Data Home Medications ?Medication ?Instructions ?Recorded ?Confirmed Lactobacillus acidophilus 100 1 ea PO DAILY 09/27/17 05/12/24 million cell capsule acetaminophen 325 mg tablet 325 mg PO PRN 09/27/17 05/12/24 (Tylenol) calcium carb,cit ER 600 mg-vit D3 1 ea PO DAILY 09/27/17 05/12/24 12.5 mcg (500 unit) tablet,ext.rel fluticasone propionate 50 50 mcg inhalation DAILY PRN 09/27/17 05/12/24 mcg/actuation blister powder for inhalation (Flovent Diskus) methocarbamol 500 mg tablet 500 mg PO PRN 09/27/17 05/12/24 dicyclomine 20 mg tablet 20 mg PO BID 10/10/17 05/12/24 albuterol sulfate 90 mcg/actuation 2 puff inhalation Q4H PRN 01/11/22 05/12/24 aerosol inhaler (Proventil HFA) ascorbic acid (vitamin C) 500 mg 1,500 mg PO QWEEK 01/25/22 05/12/24 capsule acetylcysteine 600 mg capsule (NAC) 500 mg PO BID 01/24/23 05/12/24 melatonin 5 mg disintegrating 10 mg PO PRN 01/24/23 05/12/24 tablet polyethylene glycol 3350 17 17 g PO ONCE #238 grams 01/24/23 05/12/24 gram/dose oral powder bupropion HCl 100 mg tablet,12 hr 100 mg PO DAILY 05/14/23 05/12/24 sustained-release (Wellbutrin SR) cyanocobalamin (vitamin B-12) 3,000 mcg PO .COMPLEX 06/19/23 05/12/24 1,000 mcg capsule loratadine 10 mg tablet 10 mg PO DAILY PRN 06/19/23 05/12/24 trazodone 50 mg tablet 25 mg PO QHS 06/19/23 05/12/24 celecoxib 100 mg capsule (Celebrex) 100 mg PO DAILY 06/27/23 05/12/24 magnesium 250 mg tablet 250 mg PO DAILY 06/27/23 05/12/24 Previous Rx's ?Medication ?Instructions ?Recorded polyethylene glycol 3350 17 17 g PO ONCE #238 grams 01/24/23 gram/dose oral powder Allergies Allergy/AdvReac Type Severity Reaction Status Date / Time aspirin Allergy Severe Unverified 06/27/23 09:06 chocolate flavor Allergy Severe Nasal Unverified 06/27/23 09:06 bleeding diphenhydramine HCl (From Allergy Intermediate Unverified 06/27/23 09:06 Benadryl) codeine Allergy Mild Unverified 06/27/23 09:06 corn Allergy Unverified 06/27/23 09:06 doxycycline Allergy Verified 06/27/23 09:06 Tetanus Vaccines and Toxoid Allergy Verified 06/27/23 09:06 amitriptyline AdvReac Mild Nausea Unverified 06/27/23 09:06 amoxicillin AdvReac Mild Nausea Unverified 06/27/23 09:06 dairy AdvReac Severe Uncoded 06/27/23 09:06 General Stated Complaint: Laceration ANTOINE: 4 Review of Systems All systems reviewed & are unremarkable except as noted in HPI and below Musculoskeletal Musculoskeletal: Reports as per HPI Exam Extrem Right lower extremity: foot Details: normal capillary refill, normal to inspection, toes with normal ROM and other (Right fifth digit toenail slightly lifted up and tender with palpation. It is in the epicondyle fold) Course Vital Signs Vital signs: Vital Signs Temperature 36.8 C 05/12/24 18:17 Pulse 67 05/12/24 18:17 Blood Pressure 100/64 05/12/24 18:17 Pulse Oximetry 98 05/12/24 18:17 Temperature 36.8 C 05/12/24 18:17 Temperature Source Tympanic 05/12/24 18:17 Pulse 67 05/12/24 18:17 Blood Pressure 100/64 05/12/24 18:17 Pulse Oximetry 98 05/12/24 18:17 Pain Level 6 05/12/24 18:17 Medical Decision Making 59-year-old female presents to the ER with a chief complaint right fifth toe pain after stubbing her toe prior to arrival lifting the nail up off the bed. At this time the nail is still in the condyle fold. There is no bleeding, no deformity. She is able to move her digit without difficulty. Is soaking in chlorhexidine and saline upon arrival. She denies any other associated symptoms or complaints. Patient denies any toe pain will defer imaging at this time. As far as the toenail being in the epicondyle fold there is nothing to be done at this time. Will gonzález tape and instruct patient on home care. This text was generated using [employer] system, please disregard any oddities of phrase or misspellings. 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 Genital herpes (Acute) CKD (chronic kidney disease), stage III (Acute) Macrocytosis (Acute) Onychomycosis (Acute) Medical History Ulcerative colitis Adenomatous colon polyp Asthma IBS (irritable bowel syndrome) Chronic back pain Dyspepsia Depression Arthralgia Surgical History Colonoscopy - MAC (10/14/17) Social History Smoking/Tobacco Use Status: Former Tobacco Use Quit Date: 08/26/86 Smoking risk assessment performed?: Yes Alcohol Intake: current Alcohol Intake frequency: holidays/special occasions only Drug use: Daily Substance use type: marijuana Details: Smokes and edibles for control of her back pain last marijuana use t-1 2100 Housing: house Current gender identity: female Do you feel safe at home: Yes Do you feel safe in your relationship?: Yes Additional Social history: unable to assess privately-06/27/23 sammy
== END 2024-05-12 18:59 | disposition home or self-care (01) ==
LOC: ER 18:38 → RED 18:59
PROVIDERS: Emergency Provider Registered Nurse Emergency; PCP Nurse Practitioner Family
DX: S91.204A Unspecified open wound of right lesser toe(s) with damage to nail, initial encounter (principal); N18.30 Chronic kidney disease, stage 3 unspecified; W22.01XA Walked into wall, initial encounter; Y93.01 Activity, walking, marching and hiking; Y92.018 Other place in single-family (private) house as the place of occurrence of the external cause; Z87.891 Personal history of nicotine dependence
CPT/HCPCS: 99283

== ENCOUNTER 2024-07-07 16:14 | Outpatient (REF) | payer OTHER, SELFPAY ==
[2024-07-07 16:15] LABS: Bilirubin Negative (Negative); Blood Moderate (Negative); Clarity Clear (Clear); Glucose Negative (Negative); Ketones Negative (Negative); Leukocyte Esterase Negative (Negative); Nitrite Negative (Negative); Specific Gravity 1.025 (1.005-1.025); Urobilinogen 0.2 mg/dL (Up to 0.2); pH 5.5 (5-8)
[2024-07-07 16:42] LABS: Bacteria Few HPF (Negative); C & S Indicated? No; Epithelial Cells Few HPF (Negative); Mucus Trace (Negative); RBC 20-50 HPF (0-2); WBC 0-2 HPF (0-5)
== END 2024-07-07 16:15 | disposition home or self-care (01) ==
LOC: LBN 16:14
PROVIDERS: PCP Nurse Practitioner Family; Visit Provider Nurse Practitioner Gerontology
DX: R31.0 Gross hematuria (principal)
CPT/HCPCS: 81003; 81015

== ENCOUNTER 2024-08-07 08:57 | Outpatient (REF) | payer OTHER, SELFPAY ==
[2024-08-07 14:39] LABS: Abs Immature Grans 0.01 10^3/uL (0.0-0.06); Absolute Basophil Count 0.03 10^3/uL (0.0-0.2); Absolute Eosinophil Count 0.13 10^3/uL (0.0-0.7); Absolute Lymphocyte Count 1.57 10^3/uL (1.2-3.4); Absolute Monocyte Count 0.56 10^3/uL (0.1-0.8); Absolute Neutrophil Count 4.77 10^3/uL (1.2-6.7); Basophils % 0.4 %; Eosinophils % 1.8 %; HCT 41.5 % (36.0-46.0); Immature Grans % 0.1 %; Lymphocytes % 22.2 %; MCH 33.5 pg (27.0-33.0); MCHC 33.7 % (32.0-36.0); MCV 99 fL (80-95); MPV 10.9 fL (8.0-11.0); Monocytes % 7.9 %; Neutrophils % 67.6 %; Platelet Count 309 10^3/uL (130-400); RBC 4.18 10^6/uL (3.93-5.22); RDW-SD 47.6 fL; WBC 7.07 10^3/uL (4.4-10.8)
[2024-08-07 15:04] LABS: Hemoglobin A1C 5.6 % (<5.7)
[2024-08-07 15:23] LABS: ALT 29 U/L (14-59); AST 17 U/L (15-37); Albumin 3.7 g/dL (3.4-5.0); Alkaline Phosphatase 112 U/L (46-116); Anion Gap 10.4 mmol/L (3-11); BUN 15 mg/dL (7-18); Bilirubin, Total 0.35 mg/dL (0.2-1.0); CO2 25.6 mmol/L (21.0-32.0); CREATININE 1.2 mg/dL (0.55-1.02); Calcium 9.3 mg/dL (8.5-10.1); Calculated LDL 88 mg/dL (<100); Chloride 108 mmol/L (98-107); Cholesterol 167 mg/dL (<200); Folate 5.5 ng/mL (8.6-20.0); Glucose 96 mg/dL (74-106); HDL Cholesterol 72 mg/dL (40-60); Potassium 4.2 mmol/L (3.5-5.1); Sodium 144 mmol/L (136-145); TSH (W/Ref FT4) 1.46 uIU/mL (0.36-3.74); Total Protein 6.8 g/dL (6.4-8.2); Triglyceride 39 mg/dL (<150); Vitamin B12 1353 pg/mL (193-986)
== END 2024-08-07 08:58 | disposition home or self-care (01) ==
LOC: NCHCN 08:57
PROVIDERS: PCP Nurse Practitioner Family; Visit Provider Nurse Practitioner Family
DX: R41.3 Other amnesia (principal); D75.89 Other specified diseases of blood and blood-forming organs; N18.30 Chronic kidney disease, stage 3 unspecified
CPT/HCPCS: 80053; 80061; 82607; 82746; 83036; 84443; 85025

== ENCOUNTER 2024-11-20 00:48 | Outpatient (CLI) | payer OTHER, SELFPAY ==
--- NOTE | 2024-11-20 | DI.MAMMO_ITS ---
Exam(s) MAMMO SCREENING EXAM: MAMMO SCREENING CLINICAL HISTORY: Screening, Z12.31. TECHNIQUE: Bilateral full field digital CC and MLO mammographic images were obtained with 3D tomosyn thesis and utilizing computer aided detection (CAD). COMPARISON: Prior mammograms were reviewed. FINDINGS: There has been no significant change in the appearance and distribution of the fibroglandular tissue. No CAD designations. There are no new spiculated masses nor malignant appearing microcalcification groups. There is no significant architectural distortion nor skin thickening-retraction. IMPRESSION: No radiographic evidence of malignancy. BI-RADS Category 1 - Negative Breast Density - Category B - Scattered areas of fibroglandular density Breast density Category C or D implies that the patient has dense breast tissue. Dense breast tissue can make it harder to find cancer on a mammogram. Dense breast tissue is also associated with an incr eased risk of breast cancer. This information about the result of the mammogram report was provided to the patient to raise their awareness. Use this report when you speak with the patient about their risks for breast cancer, which includes their family history. At that time, you may recommend additional screening tests (Ultrasoun d or MRI) as these tests may add significant information. A negative radiographic report should not delay biopsy if a dominant or clinically suspicious mass is present. Up to ten percent of cancers are not identified on mammography. A negative report may reinforce clinical impression. Adenosis and dense breasts may obscure an underlying neoplasm. False positive reports average 6 to 10%. Patient will receive a letter notifying them of these results.
== END 2024-11-20 01:08 ==
PROVIDERS: PCP Nurse Practitioner Family; Visit Provider Nurse Practitioner Family
DX: Z12.31 Encounter for screening mammogram for malignant neoplasm of breast (principal); R92.323 Mammographic fibroglandular density, bilateral breasts
CPT/HCPCS: 77063; 77067

== ENCOUNTER 2024-12-08 15:44 | Outpatient (REF) | payer OTHER, SELFPAY ==
--- NOTE | 2024-12-08 14:00 | SKI_PTH ---
PATIENT: Em Navarro LOC: [facility] U#:[id number] AGE/SX: 59/F ROOM: RE12/08/[address]: Jewels Davis : 1965 BED: DIS: 12/08/2024 SPEC #: [id number] RECD: 12/09/24 12:28 STATUS: ANISHA CHAHAL #: [id number] APRIL: 12/08/24 14:[address]: Jewels Davis DEPT: Surgical Specimen RECD BY: Thea Dumont Tissues: 1 - SKIN BIOPSY(SHAVE/PUNCH) Procedures: SKIN LEVEL 4 Comments: [id number]
== END 2024-12-08 15:45 | disposition home or self-care (01) ==
LOC: NCHCN 15:44
PROVIDERS: PCP Nurse Practitioner Family; Visit Provider Nurse Practitioner Family
DX: R60.0 Localized edema (principal); L30.8 Other specified dermatitis
CPT/HCPCS: 88305

== ENCOUNTER 2025-02-09 13:31 | Outpatient (REF) | payer OTHER, SELFPAY ==
[2025-02-09 15:58] LABS: Anion Gap 8.3 mmol/L (3-11); BUN 14 mg/dL (7-18); CO2 29.7 mmol/L (21.0-32.0); CREATININE 1.2 mg/dL (0.55-1.02); Calcium 9.5 mg/dL (8.5-10.1); Chloride 106 mmol/L (98-107); Glucose 91 mg/dL (74-106); Potassium 4.4 mmol/L (3.5-5.1); Sodium 144 mmol/L (136-145)
== END 2025-02-09 13:32 | disposition home or self-care (01) ==
LOC: NCHCN 13:31
PROVIDERS: PCP Nurse Practitioner Family; Visit Provider Nurse Practitioner Family
DX: N18.30 Chronic kidney disease, stage 3 unspecified (principal)
CPT/HCPCS: 80048

== ENCOUNTER → 2025-07-27 00:21 | Outpatient (CLI) | payer OTHER, SELFPAY ==
--- NOTE | 2025-07-27 | DI.MRI_ITS ---
Exam(s) MR THORACIC SPINE WO EXAM: MR THORACIC SPINE WO CLINICAL HISTORY: PAIN T SPINE M54.6 ARTHROPATHY M12.9 PAIN HAND M79.643. TECHNIQUE: Multiplanar multisequence MRI of the Thoracic spine was performed. COMPARISON: CT CT ABDOMEN PELVIS WO/W from 06/28/2022 FINDINGS: Bones: The vertebral body heights are well maintained. Alignment is satisfactory. Mild degenerative endplate signal changes are seen in the midthoracic spine. Cord: The thoracic cord is normal size and signal intensity. No intrinsic cord lesion is present. Discs: At C7-T1, there is prominence of the disc with extension into the left neural foramen causing moderate left neural foraminal stenosis. Soft tissues: Normal. T1-2: No disc herniation or bulge is identified. No central spinal canal or neural foraminal stenosis. T2-3: No disc herniation or bulge is identified. No central spinal canal or neural foraminal stenosis. T4-5: No disc herniation or bulge is identified. No central spinal canal or neural foraminal stenosis. T5-6: No disc herniation or bulge is identified. No central spinal canal or neural foraminal stenosis. T6-7: There is a mild diffuse disc bulge. No central spinal canal or neural foraminal stenosis. T7-8: There is a mild diffuse disc bulge. No central spinal canal or neural foraminal stenosis. T8-9: No disc herniation or bulge is identified. No central spinal canal or neural foraminal stenosis. T9-10: No disc herniation or bulge is identified. No central spinal canal or neural foraminal stenosis. T10-11:No disc herniation or bulge is identified. No central spinal canal or neural foraminal stenosis. T11-12: There is a mild diffuse disc bulge. No central spinal canal or neural foraminal stenosis. T12-L1: No disc herniations or bulges are present. No central spinal canal or neural foraminal stenosis. IMPRESSION: 1. There is a an eccentric disc bulge at C7-T1 with extension into the left neural foramen causing left neural foraminal stenosis. 2. There is no significant central spinal canal or neural foraminal stenosis seen in the rest of the thoracic spine. DATA REPOSITORY:
--- NOTE | 2025-07-27 | DI.MRI_ITS ---
Exam(s) MR LUMBAR SPINE WO EXAM: MR LUMBAR SPINE WO CLINICAL HISTORY: CHRONIC RT SIDED LOW BACK PAIN,M54.50. TECHNIQUE: Multiplanar multisequence MRI of the Lumbar spine was performed. COMPARISON: CT CT ABDOMEN PELVIS WO/W from 06/28/2022 FINDINGS: Bones: The last intervertebral disc space is designated the L5/S1 level for the numbering purpose of this examination. The vertebral body heights are well maintained. Alignment is satisfactory. The signal characteristics are unremarkable. Cord: It is of normal size and signal intensity. T12-L1: No disc herniations or bulges are present. No central spinal canal or neural foraminal stenosis. L1-2: No disc herniations or bulges are present. No central spinal canal or neural foraminal stenosis. L2-3: No disc herniations or bulges are present. No central spinal canal or neural foraminal stenosis. L3-4: No disc herniations or bulges are present. No central spinal canal or neural foraminal stenosis.There is disc desiccation and mild degenerative endplate signal change. L4-5: No disc herniations or bulges are present. No central spinal canal or neural foraminal stenosis. There are mild degenerative changes of the facets present.There is disc desiccation and mild degenerative endplate signal change. L5-S1: There is a small central disc bulge and disc desiccation. No central spinal canal or neural foraminal stenosis.There are degenerative changes of the facets, left greater than right. Soft tissues: The visualized SI joints and sacrum are well maintained. The paraspinal soft tissues are unremarkable. IMPRESSION: Multilevel degenerative changes in the lumbar spine without evidence of central spinal canal or neural foraminal stenosis. DATA REPOSITORY:
== END ==
PROVIDERS: PCP Nurse Practitioner Family; Visit Provider Nurse Practitioner Family
DX: M54.50 Low back pain, unspecified (principal); M54.6 Pain in thoracic spine; M12.9 Arthropathy, unspecified; M79.643 Pain in unspecified hand
CPT/HCPCS: 72146; 72148

== ENCOUNTER 2025-07-28 11:24 | Outpatient (REF) | payer OTHER, SELFPAY ==
[2025-07-28 15:50] LABS: Abs Immature Grans 0.02 10^3/uL (0.0-0.06); HCT 41.2 % (36.0-46.0); HGB 13.2 g/dL (11.2-15.7); Immature Grans % 0.3 %; MCH 32.4 pg (27.0-33.0); MCHC 32.0 % (32.0-36.0); MCV 101 fL (80-95); MPV 12.2 fL (8.0-11.0); Platelet Count 228 10^3/uL (130-400); RBC 4.08 10^6/uL (3.93-5.22); RDW 13.3 % (11.7-14.6); RDW-SD 49.8 fL; WBC 7.07 10^3/uL (4.4-10.8)
[2025-07-28 16:12] LABS: Anion Gap 5.1 mmol/L (3-11); BUN 16 mg/dL (9-23); CO2 27.9 mmol/L (20.0-31.0); Calcium 9.5 mg/dL (8.3-10.6); Chloride 111 mmol/L (98-107); Folate 6.2 ng/mL (>5.38); Glucose 99 mg/dL (74-106); Potassium 4.8 mmol/L (3.5-5.1); Sodium 144 mmol/L (136-145); Vitamin B12 358 pg/mL (211-911)
[2025-07-28 16:56] LABS: Glucose Negative (Negative)
[2025-07-28 17:11] LABS: C & S Indicated? No; WBC Negative HPF (0-5)
== END 2025-07-28 11:25 | disposition home or self-care (01) ==
LOC: NCHCN 11:24
PROVIDERS: PCP Nurse Practitioner Family; Visit Provider Nurse Practitioner Family
DX: D75.89 Other specified diseases of blood and blood-forming organs (principal); N18.30 Chronic kidney disease, stage 3 unspecified
CPT/HCPCS: 80048; 81003; 81015; 82043; 82570; 82607; 82746; 85025

== ENCOUNTER → 2025-08-04 09:28 | Outpatient (CLI) | payer OTHER, SELFPAY ==
--- NOTE | 2025-08-04 | DI.RAD_ITS ---
Exam(s) XR RIBS LT W PA LAT CHEST CLINICAL HISTORY LT SIDED RIB PAIN, R07.89,RECENT FALL. COMPARISON: No exams were available for comparison TECHNIQUE:: PA and lateral views of the chest and 2 views of the left ribs were performed. FINDINGS: LUNGS: Clear. No pleural abnormality seen. HEART: Normal. MEDIASTINUM: Normal. BONES: No displaced rib fracture is seen. The lower ribs are suboptimally penetrated. No compression fractures are seen in the thoracic spine. No bony destructive lesion is seen. OTHER FINDINGS: None. IMPRESSION: 1. Unremarkable radiographic appearance of the left ribs. 2. No acute pulmonary findings.
== END ==
LOC: DI 09:28
PROVIDERS: PCP Nurse Practitioner Family; Visit Provider Nurse Practitioner Family
DX: R07.89 Other chest pain (principal)
CPT/HCPCS: 71046; 71100